=== PATIENT | male | born 2000 | race Caucasian/White ===

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

== ENCOUNTER → 2025-10-23 | Emergency (ER) | payer OTHER ==
[~2025-10-23] VITALS: Ht 177.8 cm; Wt 93.0 kg
[~2025-10-23] MED LIST: MAXITROL EYE DRO5 ML OP; NEOMYCIN SULFATE/DEX NA PH OPHT DROPS OP ONE; ZANTAC150 MG PO; ZOFRAN ODT4 MG PO
[2025-10-23 18:21] VITALS: BP 106/66; O2SAT 100
== END | disposition home or self-care (01) ==
LOC: ER 16:38
DX: L70.0 Acne vulgaris (principal)